=== PATIENT | female | born 2000 | race Caucasian/White ===

== ENCOUNTER 2019-02-26 16:49 | Emergency (ER) | payer OTHER, SELFPAY ==
[~2019-02-26] VITALS: Ht 160 cm; Wt 71.4 kg
[2019-02-26 16:50] VITALS: BP 142/89
[2019-02-26] MEDS ORDERED: FERR325T3 PO (17:03)
[2019-02-26] MEDS ORDERED: ZANTTAB PO (17:03)
[2019-02-26] MEDS ORDERED: PREN29TA4 PO (17:03)
== END 2019-02-26 18:38 | disposition left against medical advice (07) ==
LOC: M ED 16:49
DX: Z53.29 Procedure and treatment not carried out because of patient's decision for other reasons (principal)

== ENCOUNTER 2019-08-28 21:54 | Emergency (ER) | payer OTHER ==
[~2019-08-28] VITALS: Ht 162.6 cm; Wt 67.7 kg
[~2019-08-28 21:54] MED LIST: FERR325T3 PO; PREN29TA4 PO; ZANT150T40 PO
[2019-08-28] MEDS ORDERED: birth control PO (22:09)
[2019-08-28] MEDS ORDERED: OXYMETAZOLINE NASAL SPRAY (AFRIN) ONE (22:15)
[2019-08-29 00:26] VITALS: BP 123/72
== END 2019-08-29 00:28 | disposition home or self-care (01) ==
LOC: M ED 21:54
DX: R04.0 Epistaxis (principal); K21.9 Gastro-esophageal reflux disease without esophagitis; Z79.3 Long term (current) use of hormonal contraceptives